=== PATIENT | male | born 1945 | race Caucasian/White ===

== ENCOUNTER 2021-07-13 16:02 | Emergency (ER) | payer MEDICARE | END 2021-07-13 19:02 | disposition home or self-care (01) | LOC: ERS 16:02 | DX: S80.02XA Contusion of left knee, initial encounter (principal); S00.31XA Abrasion of nose, initial encounter; S50.312A Abrasion of left elbow, initial encounter; I10 Essential (primary) hypertension; J45.909 Unspecified asthma, uncomplicated; W22.8XXA Striking against or struck by other objects, initial encounter ==

== ENCOUNTER 2025-05-23 10:49 | Day surgery (SDC) | payer MEDICARE ==
[2025-05-20 13:44] VITALS: BMI 23.7
[2025-05-23] MEDS ORDERED: CEFAZOLIN 2 GM VIAL ONE (12:17)
[2025-05-23] MEDS ORDERED: fentaNYL PF 100 MCG/2 ML SYRINGE ONE (12:18)
[2025-05-23] MEDS ORDERED: PROPOFOL 20 ML ONE (12:18)
[2025-05-23] MEDS ORDERED: Ondansetron PF 4 MG/2 ML Vial ONE (12:50)
== END 2025-05-23 14:34 | disposition home or self-care (01) ==
LOC: SDC 10:49
PROVIDERS: ATTEND Thoracic Surgery (Cardiothoracic Vascular Surgery)
PROC: 0PP Upper Bones, Removal (ICD-10-PCS; principal; 2025-05-23)
DX: T85.698A Other mechanical complication of other specified internal prosthetic devices, implants and grafts, initial encounter (principal); I10 Essential (primary) hypertension; E11.9 Type 2 diabetes mellitus without complications; E78.5 Hyperlipidemia, unspecified; F17.290 Nicotine dependence, other tobacco product, uncomplicated; Z95.0 Presence of cardiac pacemaker; Z95.1 Presence of aortocoronary bypass graft; Z95.818 Presence of other cardiac implants and grafts; Z98.890 Other specified postprocedural states; Z91.02 Food additives allergy status; Z88.5 Allergy status to narcotic agent; Z88.8 Allergy status to other drugs, medicaments and biological substances; Y83.1 Surgical operation with implant of artificial internal device as the cause of abnormal reaction of the patient, or of later complication, without mention of misadventure at the time of the procedure
CPT/HCPCS: 20680; J0169; J0665; J2250; J2704